=== PATIENT | male | born 1970 | race Two or more races ===

== ENCOUNTER 2020-12-18 14:27 | Emergency (ER) | payer OTHER ==
[2020-12-18] MEDS ORDERED: NAPROSYN500 MG PO (16:27)
== END 2020-12-18 16:36 | disposition home or self-care (01) ==
LOC: ER1 14:27
DX: S93.401A Sprain of unspecified ligament of right ankle, initial encounter (principal); V29.40XA Motorcycle driver injured in collision with unspecified motor vehicles in traffic accident, initial encounter; Y92.830 Public park as the place of occurrence of the external cause
CPT/HCPCS: 73590; 73610; 99283